=== PATIENT | male | born 1975 | race African-American/Black ===

== ENCOUNTER 2018-10-29 05:48 | Day surgery (SDC) | payer BC ==
[~2018-10-29] VITALS: Ht 182.9 cm; Wt 74.5 kg
[2018-10-29 06:58] VITALS: BP 132/89
[2018-10-29 07:10] VITALS: BP 132/89
[2018-10-29] MEDS ORDERED: ATEN50TA41 PO (07:20)
[2018-10-29] MEDS ORDERED: AMLO10TA8 PO (07:20)
[2018-10-29] MEDS ORDERED: SIME125T PO (07:20)
[2018-10-29] MEDS ORDERED: HYDR-3240 PO (07:20)
[2018-10-29] MEDS ORDERED: NAPR220T77 PO (07:20)
[2018-10-29] MEDS ORDERED: LISI40TA PO (07:20)
[2018-10-29] MEDS ORDERED: PHENYLEPHRINE 10 MG/ML ONE (07:34)
[2018-10-29] MEDS ORDERED: ROCURONIUM 10 MG/ML,10ML ONE (07:34)
[2018-10-29] MEDS ORDERED: FENTANYL PF 250 MCG/5ML ONE (07:35)
[2018-10-29] MEDS ORDERED: MIDAZOLAM 1 MG/ML, 2ML ONE (07:35)
[2018-10-29] MEDS ORDERED: MEPERIDINE/PF 25MG/0.5ML IVPush PRN (08:00)
[2018-10-29] MEDS ORDERED: FENTANYL PF 100 MCG/2ML IV PRN (08:00)
[2018-10-29] MEDS ORDERED: ACETAMINOPHEN 325 MG TABLET PO PRN (08:00)
[2018-10-29] MEDS ORDERED: ALBUTEROL/IPRATROPIUM 2.5MG/0.5MG, 3 ML NPPB PRN (08:00)
[2018-10-29] MEDS ORDERED: PROMETHAZINE 25 MG/ML, 1ML IV PRN (08:00)
[2018-10-29] MEDS ORDERED: HYDROmorphone 2 MG/ML, 1ML IVPush PRN (08:00)
[2018-10-29] MEDS ORDERED: MIDAZOLAM 1 MG/ML, 2ML IV PRN (08:00)
[2018-10-29] MEDS ORDERED: hydrALAzine 20 MG/ML, 1ML IV PRN (08:00)
[2018-10-29] MEDS ORDERED: OXYcodone 5 MG/5 ML ORAL.SOL UDC PO PRN (08:00)
[2018-10-29] MEDS ORDERED: ONDANSETRON 2MG/ML, 2ML IV PRN (08:00)
[2018-10-29] MEDS ORDERED: METOPROLOL 1 MG/ML, 5ML IV PRN (08:00)
[2018-10-29] MEDS ORDERED: DEXAMETHASONE 4 MG/ML, 1ML ONE (08:15)
[2018-10-29] MEDS ORDERED: ONDANSETRON 2MG/ML, 2ML ONE (08:15)
[2018-10-29] MEDS ORDERED: SUCCINYLCHOLINE 20 MG/ML, 10ML ONE (08:15)
[2018-10-29] MEDS ORDERED: PROPOFOL 10 MG/ML, 20ML ONE (08:15)
== END 2018-10-29 10:00 | disposition home or self-care (01) ==
LOC: OR 05:48
PROVIDERS: ATTEND Internal Medicine Geriatric Medicine
DX: K86.0 Alcohol-induced chronic pancreatitis (principal); K29.50 Unspecified chronic gastritis without bleeding; K26.9 Duodenal ulcer, unspecified as acute or chronic, without hemorrhage or perforation; K86.89 Other specified diseases of pancreas; I10 Essential (primary) hypertension; F10.10 Alcohol abuse, uncomplicated; F17.290 Nicotine dependence, other tobacco product, uncomplicated
CPT/HCPCS: 43239; 43260; 88305; J0330; J1100; J2250; J2370; J2405; J2704; J3010